=== PATIENT | male | born 1950 | race Caucasian/White ===

== ENCOUNTER 2019-08-10 04:02 | Observation (INO) | payer MEDICARE ==
[~2019-08-10] VITALS: Ht 180.3 cm; Wt 71.7 kg
[~2019-08-10 04:02] MED LIST: ATORVASTATIN CA20 MG PO; BRILINTA90 MG PO; EXCEDRIN MIGRA1 EAC3 PO; PEPCID20 MG PO
[2019-08-10 04:29] LABS: BASOPHILS # (AUTO) 0.2 (0.0-0.1); BASOPHILS % 1.2 % (0.0-1.0); EOSINOPHILS # (AUTO) 0.9 (0.0-0.4); EOSINOPHILS % 4.7 % (0.0-6.0); HEMATOCRIT 49.7 % (38.2-49.6); HEMOGLOBIN 16.8 g/dL (14.0-18.0); LYMPHOCYTES % 16.5 % (18.0-39.1); MEAN CORPUSCULAR HEMOGLOBIN 31.1 pg (28-32); MEAN CORPUSCULAR HGB CONC 33.8 g/dL (31-35); MONOCYTES # (AUTO) 1.4 (0.2-0.8); MONOCYTES % 7.6 % (4.4-11.3); NEUTROPHILS # (AUTO) 12.6 (2.1-6.9); NEUTROPHILS % 69.6 % (38.7-80.0); PLATELET COUNT 372 x10e3/uL (140-360); RED CELL DISTRIBUTION WIDTH 13.2 % (11.7-14.4)
[2019-08-10 04:33] LABS: INR 0.91; PROTHROMBIN TIME 12.8 seconds (11.9-14.5)
[2019-08-10 04:34] LABS: PARTIAL THROMBOPLASTIN TIME 39.4 seconds (23.8-35.5)
[2019-08-10 04:36] LABS: CLARITY,URINE CLOUDY (CLEAR); COLOR,URINE YELLOW (YELLOW); KETONES,URINE NEGATIVE (NEGATIVE); LEUKOCYTE ESTERASE ,URINE NEGATIVE (NEGATIVE); NITRITE,URINE NEGATIVE (NEGATIVE); PROTEIN,URINE DIPSTICK NEGATIVE (NEGATIVE); URINE UROBILINOGEN 0.2 mg/dL (0.2 - 1)
[2019-08-10 04:37] LABS: BILIRUBIN,URINE 1+ (NEGATIVE)
[2019-08-10 04:40] LABS: ALANINE AMINOTRANSFERASE 11 IU/L (0-55); ALBUMIN 4.1 g/dL (3.5-5.0); ALBUMIN/GLOBULIN RATIO 1.1 (0.8-2.0); ALKALINE PHOSPHATASE 99 IU/L (40-150); ANION GAP 15.3 mmol/L (8-16); BLOOD UREA NITROGEN 7 mg/dL (7-26); BUN/CREATININE RATIO 8 (6-25); CARBON DIOXIDE 25 mmol/L (22-29); CHLORIDE 100 mmol/L (98-107); CREATININE, SERUM 0.85 mg/dL (0.72-1.25); EST GLOMERULAR FILTRATION RATE > 60 ML/MIN (60-); GLUCOSE 116 mg/dL (74-118); POTASSIUM 4.3 mmol/L (3.5-5.1); SODIUM 136 mmol/L (136-145)
[2019-08-10] MEDS ORDERED: PIPER-TAZ 3.375 GM 50 ML IV STA ×2 (04:42→05:05)
[2019-08-10 04:44] LABS: RBC,URINE 0-5 /HPF (0-5); WBC,URINE (MAN) 0-5 /HPF (0-5)
[2019-08-10 04:45] LABS: AMORPHOUS SEDIMENT,URINE MANY (FEW); BACTERIA,URINE MANY /HPF; EPITHELIAL CELLS,URINE FEW /LPF; MUCUS,URINE FEW (RARE)
[2019-08-10 04:51] LABS: AMYLASE 34 U/L (25-125); LIPASE 25 U/L (8-78)
[2019-08-10] MEDS ORDERED: SODIUM CHLORIDE 0.9% 50ML 50 ML ONE (05:06)
[2019-08-10] MEDS ORDERED: IOPAMIDOL 370 MG/ML 200 ML INFUS..BTL INJ ONE (05:06)
[2019-08-10 05:09] LABS: CREATINE KINASE MB 1.8 ng/mL (0-5.0)
--- NOTE | 2019-08-10 05:51 | Diagnostic Imaging Report ---
CT Abdomen And Pelvis with Intravenous Contrast INDICATION: Right lower quadrant pain and chills, and recent lower extremity stent placement ^abd pain TECHNIQUE: Thin collimation axial images obtained from the diaphragm to the level of the pubic symphysis following the uneventful administration of 100 cc of low osmolar, nonionic intravenous contrast. Dose reduction techniques used: Automated exposure control, adjustment of the mAs and/or kVp according to patient size, standardized low-dose protocol, and/or iterative reconstruction technique. RADIATION DOSE: Total DLP: 261.36 mGy*cm Estimated effective dose: (DLP x 0.015 x size factor) mSv CTDIvol has been reviewed. It is below the limits set by the Radiation Protocol Committee (RPC). COMPARISON: None. ABDOMEN FINDINGS: Lung Bases: Clear. The visualized portions of the mediastinum are normal.. Liver: Normal attenuation. No evidence for mass. Gallbladder: Present and appears normal. No biliary ductal dilatation. Pancreas: Normal attenuation without mass or ductal dilatation. Spleen: Normal in size. No evidence of mass.. Adrenal Glands: No evidence for mass. Kidneys: Right: Normal enhancement. No soft tissue mass. No hydronephrosis. Left: Lower pole cyst measures 4.1 x 5.2 cm. No soft tissue mass. No hydronephrosis. Lymph Nodes: No lymphadenopathy. Aorta: Atherosclerotic plaque throughout the infrarenal aorta without aneurysmal dilatation. Focal dissection along the right wall extends for approximately 2.3 cm in the craniocaudal dimension. There are two penetrating ulcers in the posterior wall measuring 7 mm and 6 mm. Just above the bifurcation an aortoiliac stent has been placed. This is widely patent. The external iliac arteries are patent. There are heavy calcifications of the internal iliac arteries with significant stenosis. Common femoral arteries appear patent. There are no stents within these vessels. PELVIS FINDINGS: Bowel: Stomach: Distended with water and appears normal. Small Bowel: Normal in caliber with normal wall thickness. Large Bowel: Normal in caliber with normal wall thickness. Appendix: Normal. Bladder: Collapsed. There is circumferential mural thickening. Prostate gland measures 5 cm in transverse dimension. Peritoneum/retroperitoneum: No free fluid or fluid collection.. Bones: Bilateral spondylolysis of L5 with grade 1 spondylolisthesis of L5 on S1. No compression fractures. Mild degenerative changes of the thoracic spine. Soft tissues: No lymphadenopathy, inflammation, fluid collection. IMPRESSION: 1. 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 2. No evidence for bowel obstruction or inflammation. Normal appendix. 3. Prostate hypertrophy and bladder wall thickening suggestive of outlet obstruction. 4. Patent aortoiliac stents. 5. Bilateral spondylolysis of L5 with grade 1 spondylolisthesis of L5 on S1. Signed by: Dr. Jovan Telles MD on 08/10/2019 5:49 AM
[2019-08-10] MEDS ORDERED: SODIUM CHLORIDE 0.9% 1000ML 1,000 ML IV STA (06:00)
[2019-08-10] MEDS ORDERED: ACETAMINOPHEN 325 MG TAB PO ONE (07:00)
[2019-08-10] MEDS ORDERED: VANCOMYCIN 1GM/NS 250 ML 250 ML IV STA (07:00)
[2019-08-10] MEDS ORDERED: MORPHINE SULFATE INJ 4 MG/ML INJ 1ML ONE (07:10)
[2019-08-10] MEDS ORDERED: ONDANSETRON HCL INJ 2MG/ML 2ML 2 MG/ML VIAL ONE (07:10)
[2019-08-10] MEDS ORDERED: ONDANSETRON HCL INJ 2MG/ML 2ML 2 MG/ML VIAL IV STA (07:18)
--- OUTSIDE RECORDS SUMMARY | 2019-08-10 07:24 | XMS REPORT ---
Author Author [facility] Address Unknown Phone Unavailable Care Team Providers Care Technology Support Analyst Name Role Phone NILSA BALLESTEROS Unavailable Unavailable Problems This patient has no known problems. Allergies, Adverse Reactions, Alerts This patient has no known allergies or adverse reactions. Medications This patient has no known medications. Results Test Description Test Time Test Comments Text Results Atomic Results Result Comments CT ABDOMEN/PELVIS W 2019-08-10 05:37:00 [place] [address] Patient Name: SHANICE CERVANTES MR #: [id number] : 1950 Age/Sex: 69/M Req #: [id number] Adm Physician: Ordered by: NILSA BALLESTEROS DO Report #: [id number] Location: ER Room/Bed: Procedure: [id number] CT/CT ABDOMEN/PELVIS W Exam Date: Exam Time: REPORT STATUS: Signed CT Abdomen And Pelvis with Intravenous Contrast INDICATION: Right lower quadrant pain and chills, and recent lower extremity stent placement abd pain TECHNIQUE: Thin collimation axial images obtained from the diaphragm to the level of the pubic symphysis following the uneventful administration of 100 cc of low osmolar, nonionic intravenous contrast. Dose reduction techniques used: Automated exposure control, adjustment of the mAs and/or kVp according to patient size, standardized low-dose protocol, and/or iterative reconstruction technique. RADIATION DOSE: Total DLP: 261.36 mGy*cm Estimated effective dose: (DLP x 0.015 x size factor) mSv CTDIvol has been reviewed. It is below the limits set by the Radiation Protocol Committee (RPC). COMPARISON: None. ABDOMEN FINDINGS: Lung Bases: Clear. The visualized portions of the mediastinum are normal.. Liver: Normal attenuation. No evidence for mass. Gallbladder: Present and appears normal. No biliary ductal dilatation. Pancreas: Normal attenuation without mass or ductal dilatation. Spleen: Normal in size. No evidence of mass.. Adrenal Glands: No evidence for mass. Kidneys: Right: Normal enhancement. No soft tissue mass. No hydronephrosis. Left: Lower pole cyst measures 4.1 x 5.2 cm. No soft tissue mass. No hydronephrosis. Lymph Nodes: No lymphadenopathy. Aorta: Atherosclerotic plaque throughout the infrarenal aorta without aneurysmal dilatation. Focal dissection along the right wall extends for approximately 2.3 cm in the craniocaudal dimension. There are two penetrating ulcers in the posterior wall measuring 7 mm and 6 mm. Just above the bifurcation an aortoiliac stent has been placed. This is widely patent. The external iliac arteries are patent. There are heavy calcifications of the internal iliac arteries with significant stenosis. Common femoral arteries appear patent. There are no stents within these vessels. PELVIS FINDINGS: Bowel: Stomach: Distended with water and appears normal. Small Bowel: Normal in caliber with normal wall thickness. Large Bowel: Normal in caliber with normal wall thickness. Appendix: Normal. Bladder: Collapsed. There is circumferential mural thickening. Prostate gland measures 5 cm in transverse dimension. Peritoneum/retroperitoneum: No free fluid or fluid collection.. Bones: Bilateral spondylolysis of L5 with grade 1 spondylolisthesis of L5 on S1. No compression fractures. Mild degenerative changes of the thoracic spine. Soft tissues: No lymphadenopathy, inflamma tion, fluid collection. IMPRESSION: 1. 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 2. No evidence for bowel obstruction or inflammation. Normal appendix. 3. Prostate hypertrophy and bladder wall thickening suggestive of outlet obstruction. 4. Patent aortoiliac stents. 5. Bilateral spondylolysis of L5 with grade 1 spondylolisthesis of L5 on S1. Signed by: Dr. Monica Telles MD on 08/10/2019 5:49 AM Dictated By: MONICA TELLES MD 8 Transcribed By: SESAR on 08/10/19548 COPY TO: NILSA BALLESTEROS DO
[2019-08-10] MEDS ORDERED: MORPHINE SULFATE INJ 4 MG/ML INJ 1ML IV ONE (07:30)
[2019-08-10 11:55] VITALS: BP 132/81
== END 2019-08-10 12:18 | disposition home or self-care (01) ==
LOC: ER 04:02 → ERHOLD 07:00
PROVIDERS: ADMIT Internal Medicine; ATTEND Internal Medicine
DX: I71.03 Dissection of thoracoabdominal aorta (principal); Z95.820 Peripheral vascular angioplasty status with implants and grafts; D72.829 Elevated white blood cell count, unspecified
CPT/HCPCS: 36415; 74177; 80053; 81001; 82150; 82550; 82553; 83605; 83690; 84484; 85025; 85610; 85730; 87040; 93005; 99284; G0378; J2270; J2405; J2543; J3370; J7030; Q9967

== ENCOUNTER → 2020-12-19 | Day surgery (SDC) | payer MEDICARE ==
[2020-12-16 09:53] LABS: BASOPHILS # (AUTO) 0.1 (0.0-0.1); BASOPHILS % 1.1 % (0.0-1.0); EOSINOPHILS # (AUTO) 0.5 (0.0-0.4); EOSINOPHILS % 3.8 % (0.0-6.0); HEMATOCRIT 49.9 % (38.2-49.6); HEMOGLOBIN 16.4 g/dL (14.0-18.0); LYMPHOCYTES # (AUTO) 1.8 (1.0-3.2); LYMPHOCYTES % 15.1 % (18.0-39.1); MEAN CORPUSCULAR HEMOGLOBIN 31.6 pg (28-32); MEAN CORPUSCULAR HGB CONC 32.9 g/dL (31-35); MEAN CORPUSCULAR VOLUME 96.1 fL (81-99); MONOCYTES # (AUTO) 1.1 (0.2-0.8); MONOCYTES % 8.9 % (4.4-11.3); NEUTROPHILS # (AUTO) 8.4 (2.1-6.9); NEUTROPHILS % 70.7 % (38.7-80.0); PLATELET COUNT 278 x10e3/uL (140-360); RED BLOOD COUNT 5.19 x10e6/uL (4.3-5.7); RED CELL DISTRIBUTION WIDTH 13.2 % (11.7-14.4)
[2020-12-16 10:26] LABS: ALBUMIN 3.7 g/dL (3.5-5.0); ALBUMIN/GLOBULIN RATIO 1.2 (0.8-2.0); ANION GAP 10.3 mmol/L (8-16); CALCIUM 9.1 mg/dL (8.4-10.2); CREATININE, SERUM 0.79 mg/dL (0.72-1.25); POTASSIUM 4.3 mmol/L (3.5-5.1)
[2020-12-16 10:39] LABS: INR 0.89; PROTHROMBIN TIME 12.6 seconds (11.9-14.5)
[~2020-12-19] VITALS: Ht 181.6 cm; Wt 72.6 kg
[2020-12-19] VITALS (9 sets, daily range): BP systolic 134–153; BP diastolic 67–75
[~2020-12-19] MED LIST changes: +ASPIRIN 325 MG TAB ONE; +CLOPIDOGREL BISULFATE 75 MG TAB ONE; +CLOPIDOGREL75 MG PO; +FENTANYL CITRATE/PF 100MCG/2 ML INJ ONE; +FISH OIL 1,0001 EAC2 PO; +FLOMAX0.4 MG PO; +HEPARIN SOD (PORCINE) 1000 UNIT/ML 30ML ONE; +HEPARIN SOD/SOD CHLORIDE 2,000 ML ONE; +IOPAMIDOL 300MG/ML 100 ML INFUS..BTL IV ONE; +LIDOCAINE HCL 2% LOCAL 20 ML VIAL ONE; +MEDROL4 MG PO; +MIDAZOLAM HCL 2 MG/2 ML VIAL ONE; +NITROGLYCERIN/D5W 200 MCG/ML 250 ML ONE; +SODIUM CHLORIDE 0.9% 1000ML 1,000 ML ONE; +VERAPAMIL HCL 2.5 MG/ML 2 ML VIAL ONE; +VITAMIN D3125 MCG PO
== END | disposition home or self-care (01) ==
LOC: CATH LAB 06:35
PROVIDERS: ATTEND Internal Medicine Cardiovascular Disease
DX: I70.212 Atherosclerosis of native arteries of extremities with intermittent claudication, left leg (principal); Z95.820 Peripheral vascular angioplasty status with implants and grafts; R00.2 Palpitations; I87.2 Venous insufficiency (chronic) (peripheral); I74.09 Other arterial embolism and thrombosis of abdominal aorta; E78.5 Hyperlipidemia, unspecified; I49.1 Atrial premature depolarization; I49.3 Ventricular premature depolarization; R07.2 Precordial pain; Z79.02 Long term (current) use of antithrombotics/antiplatelets
CPT/HCPCS: 36415; 37227; 75625; 75710; 76937; 80053; 85025; 85610; C1724; C1725 ×4; C1769 ×2; C1876; C2623; J1644; J2001; J2250; J3010; J7030; Q9967; 36247; 37224; 92979; 99152; 99153

== ENCOUNTER → 2020-12-26 | Day surgery (SDC) | payer MEDICARE ==
[2020-12-25 11:05] LABS: BASOPHILS # (AUTO) 0.1 (0.0-0.1); BASOPHILS % 1.1 % (0.0-1.0); EOSINOPHILS # (AUTO) 0.5 (0.0-0.4); EOSINOPHILS % 5.1 % (0.0-6.0); HEMATOCRIT 48.7 % (38.2-49.6); HEMOGLOBIN 16.1 g/dL (14.0-18.0); LYMPHOCYTES # (AUTO) 1.8 (1.0-3.2); MEAN CORPUSCULAR HEMOGLOBIN 31.4 pg (28-32); MEAN CORPUSCULAR HGB CONC 33.1 g/dL (31-35); MEAN CORPUSCULAR VOLUME 95.1 fL (81-99); MONOCYTES # (AUTO) 0.9 (0.2-0.8); MONOCYTES % 8.1 % (4.4-11.3); NEUTROPHILS # (AUTO) 7.2 (2.1-6.9); NEUTROPHILS % 68.2 % (38.7-80.0); PLATELET COUNT 291 x10e3/uL (140-360); RED BLOOD COUNT 5.12 x10e6/uL (4.3-5.7); RED CELL DISTRIBUTION WIDTH 12.8 % (11.7-14.4)
[2020-12-25 11:55] LABS: ALBUMIN 3.4 g/dL (3.5-5.0); ALBUMIN/GLOBULIN RATIO 0.9 (0.8-2.0); ANION GAP 11.5 mmol/L (8-16); CALCIUM 9.3 mg/dL (8.4-10.2); CREATININE, SERUM 0.72 mg/dL (0.72-1.25); POTASSIUM 3.5 mmol/L (3.5-5.1)
[2020-12-25 12:00] LABS: INR 0.89; PROTHROMBIN TIME 12.6 seconds (11.9-14.5)
[~2020-12-26] VITALS: Ht 181.6 cm; Wt 72.6 kg
[2020-12-26] VITALS (8 sets, daily range): BP systolic 104–127; BP diastolic 67–78
[~2020-12-26] MED LIST changes: -ASPIRIN 325 MG TAB ONE; -CLOPIDOGREL BISULFATE 75 MG TAB ONE; -NITROGLYCERIN/D5W 200 MCG/ML 250 ML ONE; -VERAPAMIL HCL 2.5 MG/ML 2 ML VIAL ONE
== END | disposition home or self-care (01) ==
LOC: CATH LAB 11:26
PROVIDERS: ATTEND Internal Medicine Cardiovascular Disease
DX: I73.9 Peripheral vascular disease, unspecified (principal); I87.2 Venous insufficiency (chronic) (peripheral); R00.2 Palpitations; I74.09 Other arterial embolism and thrombosis of abdominal aorta; E78.5 Hyperlipidemia, unspecified; I49.1 Atrial premature depolarization; I49.3 Ventricular premature depolarization; R07.2 Precordial pain
CPT/HCPCS: 36247; 36415; 75625; 75710; 80053; 85025; 85610; C1769; C1887 ×3; J2001; J2250; J3010; J7030; Q9967; 99152; 99153; J1644

== ENCOUNTER 2021-12-24 11:11 | Observation (INO) | payer MEDICARE ==
[~2021-12-24] VITALS: Ht 181.6 cm; Wt 72.6 kg
[~2021-12-24 11:11] MED LIST changes: -FENTANYL CITRATE/PF 100MCG/2 ML INJ ONE; -HEPARIN SOD (PORCINE) 1000 UNIT/ML 30ML ONE; -HEPARIN SOD/SOD CHLORIDE 2,000 ML ONE; -IOPAMIDOL 300MG/ML 100 ML INFUS..BTL IV ONE; -LIDOCAINE HCL 2% LOCAL 20 ML VIAL ONE; -MIDAZOLAM HCL 2 MG/2 ML VIAL ONE; -SODIUM CHLORIDE 0.9% 1000ML 1,000 ML ONE
[2021-12-24 11:45] LABS: BASOPHILS # (AUTO) 0.1 (0.0-0.1); EOSINOPHILS # (AUTO) 0.3 (0.0-0.4); EOSINOPHILS % 2.8 % (0.0-6.0); HEMATOCRIT 50.2 % (38.2-49.6); HEMOGLOBIN 16.5 g/dL (14.0-18.0); LYMPHOCYTES # (AUTO) 2.2 (1.0-3.2); LYMPHOCYTES % 18.5 % (18.0-39.1); MEAN CORPUSCULAR HEMOGLOBIN 31.5 pg (28-32); MEAN CORPUSCULAR HGB CONC 32.9 g/dL (31-35); MEAN CORPUSCULAR VOLUME 95.8 fL (81-99); MONOCYTES # (AUTO) 1.2 (0.2-0.8); MONOCYTES % 9.9 % (4.4-11.3); NEUTROPHILS % 67.3 % (38.7-80.0); PLATELET COUNT 300 x10e3/uL (140-360); RED BLOOD COUNT 5.24 x10e6/uL (4.3-5.7); RED CELL DISTRIBUTION WIDTH 12.9 % (11.7-14.4)
[2021-12-24] MEDS ORDERED: ASPIRIN 81 MG CHEW TAB PO ONE ×2 (11:45→13:15)
[2021-12-24 11:55] LABS: INR 0.93; PROTHROMBIN TIME 13.3 seconds (11.9-14.5)
[2021-12-24 11:56] LABS: PARTIAL THROMBOPLASTIN TIME 32.1 seconds (23.8-35.5)
[2021-12-24 12:03] LABS: ALANINE AMINOTRANSFERASE 18 IU/L (0-55); ALBUMIN 3.8 g/dL (3.5-5.0); ALKALINE PHOSPHATASE 70 IU/L (40-150); ANION GAP 15.6 mmol/L (8-16); BLOOD UREA NITROGEN 16 mg/dL (7-26); BUN/CREATININE RATIO 20 (6-25); CALCIUM 9.5 mg/dL (8.4-10.2); CARBON DIOXIDE 25 mmol/L (22-29); CHLORIDE 105 mmol/L (98-107); CREATINE KINASE 135 IU/L (30-200); CREATININE, SERUM 0.81 mg/dL (0.72-1.25); GLUCOSE 108 mg/dL (74-118); POTASSIUM 4.6 mmol/L (3.5-5.1); SODIUM 141 mmol/L (136-145)
[2021-12-24] MEDS ORDERED: ONDANSETRON HCL INJ 2MG/ML 2ML 2 MG/ML VIAL IV PRN (13:15)
[2021-12-24] MEDS ORDERED: NITROGLYCERIN 0.4 MG SUBL SL PRN (13:15)
[2021-12-24] MEDS ORDERED: Morphine 2mg Syringe 2 MG/ML SYR IV PRN (13:15)
[2021-12-24] MEDS: FAMOTIDINE 20 MG/2 ML VIAL IV SCH ×2 (14:02→21:04)
[2021-12-24 17:25] VITALS: BP 99/81
[2021-12-24 20:07] LABS: CREATINE KINASE 102 IU/L (30-200)
[2021-12-24 20:45] VITALS: BP 129/69
[2021-12-24] MEDS ORDERED: ATORVASTATIN 40 MG TAB PO SCH (21:00)
[2021-12-24 21:48] VITALS: BP 129/69
[2021-12-25] VITALS (19 sets, daily range): BP systolic 100–130; BP diastolic 56–83
[2021-12-25 03:13] LABS: CREATINE KINASE 100 IU/L (30-200)
[2021-12-25 05:37] LABS: BASOPHILS # (AUTO) 0.1 (0.0-0.1); BASOPHILS % 0.9 % (0.0-1.0); EOSINOPHILS # (AUTO) 0.5 (0.0-0.4); EOSINOPHILS % 4.3 % (0.0-6.0); HEMATOCRIT 48.4 % (38.2-49.6); HEMOGLOBIN 15.9 g/dL (14.0-18.0); LYMPHOCYTES # (AUTO) 2.8 (1.0-3.2); MEAN CORPUSCULAR HEMOGLOBIN 32.1 pg (28-32); MEAN CORPUSCULAR HGB CONC 32.9 g/dL (31-35); MEAN CORPUSCULAR VOLUME 97.6 fL (81-99); MONOCYTES # (AUTO) 1.1 (0.2-0.8); MONOCYTES % 10.2 % (4.4-11.3); NEUTROPHILS # (AUTO) 6.3 (2.1-6.9); NEUTROPHILS % 58.3 % (38.7-80.0); PLATELET COUNT 295 x10e3/uL (140-360); RED BLOOD COUNT 4.96 x10e6/uL (4.3-5.7); RED CELL DISTRIBUTION WIDTH 12.8 % (11.7-14.4)
[2021-12-25 06:14] LABS: ALBUMIN 3.5 g/dL (3.5-5.0); ALBUMIN/GLOBULIN RATIO 1.1 (0.8-2.0); ANION GAP 13.3 mmol/L (8-16); CALCIUM 8.5 mg/dL (8.4-10.2); CHOL/HDL RATIO 3.8 (3.9-4.7); CREATININE, SERUM 0.81 mg/dL (0.72-1.25); POTASSIUM 4.3 mmol/L (3.5-5.1)
[2021-12-25] MEDS ORDERED: OMEGA 3 POLYUNSAT FATTY ACIDS 1000 MG SOFTGEL PO SCH (09:00)
[2021-12-25] MEDS: FAMOTIDINE 20 MG/2 ML VIAL IV SCH (09:00)
[2021-12-25] MEDS ORDERED: NON-FORMULARY MEDICATION (Omega-3 Fatty Acids/Fish Oil (Fish Oil 1,000 Mg Capsule) 1 CAP) PO SCH (09:00)
[2021-12-25] MEDS ORDERED: CHOLECALCIFEROL 125 MCG PO SCH (09:00)
[2021-12-25] MEDS ORDERED: CHOLECALCIFEROL 1,000 UNIT TAB PO SCH (09:00)
[2021-12-25] MEDS ORDERED: CLOPIDOGREL BISULFATE 75 MG TAB PO SCH ×2 (09:00)
[2021-12-25] MEDS ORDERED: TAMSULOSIN HCL 0.4 MG CAP PO SCH (09:00)
[2021-12-25] MEDS ORDERED: ASPIRIN 325 MG TAB EC PO SCH (09:00)
[2021-12-25 12:29] LABS: CREATINE KINASE MB 2.3 ng/mL (0-5.0)
[2021-12-25] MEDS ORDERED: LIDOCAINE HCL 2% LOCAL 20 ML VIAL ONE (13:08)
[2021-12-25] MEDS ORDERED: SODIUM CHLORIDE 0.9% 1000ML 1,000 ML ONE (13:09)
[2021-12-25] MEDS ORDERED: HEPARIN SOD/SOD CHLORIDE 2,000 ML ONE (13:09)
[2021-12-25] MEDS ORDERED: MIDAZOLAM HCL 2 MG/2 ML VIAL ONE (13:09)
[2021-12-25] MEDS ORDERED: IOPAMIDOL 370 MG/ML 100 ML INFUS..BTL INJ ONE (13:09)
[2021-12-25] MEDS ORDERED: FENTANYL CITRATE/PF 100MCG/2 ML INJ ONE (13:10)
[2021-12-25] MEDS ORDERED: IMDUR PO (18:37)
== END 2021-12-25 20:03 | disposition home or self-care (01) ==
LOC: ER 11:37 → ERHOLD 13:10 → INTOOBSV 13:10 → MED/SURG2 16:33
DX: I25.110 Atherosclerotic heart disease of native coronary artery with unstable angina pectoris (principal); K21.9 Gastro-esophageal reflux disease without esophagitis; E78.5 Hyperlipidemia, unspecified; F17.200 Nicotine dependence, unspecified, uncomplicated; F10.21 Alcohol dependence, in remission; I73.9 Peripheral vascular disease, unspecified; I10 Essential (primary) hypertension; Z95.820 Peripheral vascular angioplasty status with implants and grafts; Z20.822 Contact with and (suspected) exposure to COVID-19
CPT/HCPCS: 36415 ×2; 71045; 76937; 80053 ×2; 80061; 82550 ×2; 82553 ×2; 84484 ×2; 85025 ×2; 85610; 85730; 93005; 93306; 93454; 94799; 99284; C1887; G0378 ×2; J2001; J2250; J3010; J7030; Q9967; U0002; 99152; 99153

== ENCOUNTER 2024-07-04 11:27 | Inpatient (IN) | payer MEDICARE ==
[~2024-07-04] VITALS: Ht 180.3 cm; Wt 72.6 kg
[~2024-07-04 11:27] MED LIST changes: +IMDUR PO
[2024-07-04] MEDS: SODIUM CHLORIDE 0.9% 1000ML 1,000 ML IV STA (12:22)
[2024-07-04 13:00] LABS: INR 1.11
[2024-07-04 13:01] LABS: PARTIAL THROMBOPLASTIN TIME 24.8 seconds (23.8-35.5)
[2024-07-04 13:06] LABS: BASOPHILS % 0.1 % (0.0-1.0); LYMPHOCYTES # (AUTO) 0.8 (1.0-3.2); LYMPHOCYTES % 5.7 % (18.0-39.1); MEAN CORPUSCULAR HEMOGLOBIN 23.1 pg (28-32); MEAN CORPUSCULAR HGB CONC 24.8 g/dL (31-35); MEAN CORPUSCULAR VOLUME 93.1 fL (81-99); MONOCYTES # (AUTO) 1.1 (0.2-0.8); MONOCYTES % 8.1 % (4.4-11.3); NEUTROPHILS # (AUTO) 12.1 (2.1-6.9); NEUTROPHILS % 85.5 % (38.7-80.0); PLATELET COUNT 466 x10e3/uL (140-360); RED CELL DISTRIBUTION WIDTH 18.4 % (11.7-14.4); WHITE BLOOD COUNT 14.09 x10e3/uL (4.8-10.8)
[2024-07-04 13:09] LABS: ALBUMIN 3.2 g/dL (3.5-5.0); ALBUMIN/GLOBULIN RATIO 1.3 (0.8-2.0); ANION GAP 14.7 mmol/L (8-16); BILIRUBIN,TOTAL 0.8 mg/dL (0.2-1.2); CALCIUM 8.5 mg/dL (8.4-10.2); CREATININE, SERUM 0.76 mg/dL (0.72-1.25); MAGNESIUM 2.2 MG/DL (1.3-2.1); POTASSIUM 3.7 mmol/L (3.5-5.1); TOTAL PROTEIN 5.6 g/dL (6.5-8.1)
[2024-07-04 13:15] LABS: TROPONIN I 0.09 ng/mL (0-0.300)
[2024-07-04] MEDS ORDERED: SODIUM CHLORIDE 0.9% 100 ML ONE (13:19)
[2024-07-04] MEDS ORDERED: IOPAMIDOL 370 MG/ML 100 ML INFUS..BTL INJ ONE (13:19)
[2024-07-04 13:23] LABS: HEMATOCRIT 12.1 % (38.2-49.6)
[2024-07-04] MEDS ORDERED: ONDANSETRON HCL INJ 2MG/ML 2ML 2 MG/ML VIAL IV PRN ×2 (14:30→14:45)
[2024-07-04] MEDS ORDERED: CLONIDINE HCL 0.1 MG TAB PO PRN (14:45)
[2024-07-04] MEDS ORDERED: ACETAMINOPHEN 325 MG TAB PO PRN (14:45)
[2024-07-04] MEDS: SODIUM CHLORIDE 0.9% 1000ML 1,000 ML IV ONE (15:35)
[2024-07-04 15:59] LABS: FERRITIN 14.95 ng/mL (21.81-274.66)
[2024-07-04] MEDS ORDERED: SODIUM CHLORIDE 0.9% 250ML 250 ML ONE (17:35)
[2024-07-04] MEDS: IRON SUCROSE 100 MG in SODIUM CHLORIDE 0.9% 100 ML IV SCH (19:31)
[2024-07-04] MEDS: TAMSULOSIN HCL 0.4 MG CAP PO SCH (21:07)
[2024-07-04] MEDS: ATORVASTATIN 40 MG TAB PO SCH (21:08)
[2024-07-05] VITALS (13 sets, daily range): BP systolic 97–125; BP diastolic 43–77; PULSE 60–74; RESP 17–28; TEMP 97.4–98.8; O2SAT 98–100
[2024-07-05 01:38] LABS: TROPONIN I 0.112 ng/mL (0-0.300)
[2024-07-05 07:07] LABS: BASOPHILS % 0.1 % (0.0-1.0); EOSINOPHILS # (AUTO) 0.2 (0.0-0.4); EOSINOPHILS % 1.4 % (0.0-6.0); HEMATOCRIT 22.6 % (38.2-49.6); HEMOGLOBIN 7.1 g/dL (14.0-18.0); LYMPHOCYTES # (AUTO) 2.2 (1.0-3.2); LYMPHOCYTES % 15.3 % (18.0-39.1); MEAN CORPUSCULAR HEMOGLOBIN 27.1 pg (28-32); MEAN CORPUSCULAR HGB CONC 31.4 g/dL (31-35); MEAN CORPUSCULAR VOLUME 86.3 fL (81-99); MONOCYTES # (AUTO) 1.8 (0.2-0.8); MONOCYTES % 12.6 % (4.4-11.3); NEUTROPHILS # (AUTO) 10.2 (2.1-6.9); PLATELET COUNT 299 x10e3/uL (140-360); RED BLOOD COUNT 2.62 x10e6/uL (4.3-5.7); RED CELL DISTRIBUTION WIDTH 16.5 % (11.7-14.4); WHITE BLOOD COUNT 14.61 x10e3/uL (4.8-10.8)
[2024-07-05 07:39] LABS: TROPONIN I 0.127 ng/mL (0-0.300)
[2024-07-05 07:40] LABS: ALBUMIN 2.8 g/dL (3.5-5.0); ALBUMIN/GLOBULIN RATIO 1.5 (0.8-2.0); ANION GAP 9.9 mmol/L (8-16); BILIRUBIN,TOTAL 2.2 mg/dL (0.2-1.2); CALCIUM 8.2 mg/dL (8.4-10.2); CREATININE, SERUM 0.75 mg/dL (0.72-1.25); POTASSIUM 3.9 mmol/L (3.5-5.1); TOTAL PROTEIN 4.7 g/dL (6.5-8.1)
[2024-07-05] MEDS: ISOSORBIDE MONONITRATE 30 MG TAB CR PO SCH (07:49)
[2024-07-05] MEDS: OMEGA 3 POLYUNSAT FATTY ACIDS 1000 MG SOFTGEL PO SCH (07:49)
[2024-07-05] MEDS: SODIUM CHLORIDE 0.9% 250ML 250 ML IV ONE (11:32)
[2024-07-05] MEDS: LACTULOSE SYRUP 20 GM/30 ML UDC PO ONE (13:00)
[2024-07-05 13:11] LABS: BASOPHILS % 0.1 % (0.0-1.0); EOSINOPHILS # (AUTO) 0.2 (0.0-0.4); EOSINOPHILS % 1.4 % (0.0-6.0); HEMATOCRIT 25.8 % (38.2-49.6); HEMOGLOBIN 7.5 g/dL (14.0-18.0); LYMPHOCYTES # (AUTO) 1.9 (1.0-3.2); LYMPHOCYTES % 12.6 % (18.0-39.1); MEAN CORPUSCULAR HEMOGLOBIN 26.6 pg (28-32); MEAN CORPUSCULAR HGB CONC 29.1 g/dL (31-35); MEAN CORPUSCULAR VOLUME 91.5 fL (81-99); MONOCYTES # (AUTO) 1.9 (0.2-0.8); MONOCYTES % 12.6 % (4.4-11.3); NEUTROPHILS # (AUTO) 10.7 (2.1-6.9); NEUTROPHILS % 72.7 % (38.7-80.0); PLATELET COUNT 310 x10e3/uL (140-360); RED BLOOD COUNT 2.82 x10e6/uL (4.3-5.7); RED CELL DISTRIBUTION WIDTH 16.9 % (11.7-14.4); WHITE BLOOD COUNT 14.74 x10e3/uL (4.8-10.8)
[2024-07-05] MEDS ORDERED: IOPAMIDOL 370 MG/ML 100 ML INFUS..BTL INJ ONE (13:17)
[2024-07-05] MEDS ORDERED: DOCUSATE SODIUM 100 MG CAP PO SCH (17:00)
[2024-07-05] MEDS: BISACODYL 5 MG TAB EC PO ONE ×3 (18:27→19:30)
[2024-07-05] MEDS ORDERED: IRON SUCROSE 5 ML IV ONE (21:45)
[2024-07-05] MEDS: IRON SUCROSE 100 MG in SODIUM CHLORIDE 0.9% 100 ML IV SCH (21:48)
[2024-07-05] MEDS: CITRATE OF MAGNESIA 300ML BOTTLE PO ONE (21:50)
[2024-07-05] MEDS: DOCUSATE SODIUM 100 MG CAP PO SCH (21:50)
[2024-07-06] VITALS (7 sets, daily range): BP systolic 93–107; BP diastolic 42–55; PULSE 58–68; RESP 18–20; TEMP 97.8–98.6; O2SAT 98–100
[2024-07-06] MEDS: CITRATE OF MAGNESIA 300ML BOTTLE PO ONE ×2 (04:27→21:38)
[2024-07-06 05:26] LABS: BASOPHILS % 0.2 % (0.0-1.0); EOSINOPHILS # (AUTO) 0.5 (0.0-0.4); EOSINOPHILS % 3.2 % (0.0-6.0); HEMATOCRIT 26.4 % (38.2-49.6); LYMPHOCYTES # (AUTO) 1.9 (1.0-3.2); LYMPHOCYTES % 11.3 % (18.0-39.1); MEAN CORPUSCULAR HGB CONC 30.3 g/dL (31-35); MEAN CORPUSCULAR VOLUME 89.2 fL (81-99); MONOCYTES % 12.1 % (4.4-11.3); NEUTROPHILS # (AUTO) 11.9 (2.1-6.9); NEUTROPHILS % 72.5 % (38.7-80.0); PLATELET COUNT 350 x10e3/uL (140-360); RED BLOOD COUNT 2.96 x10e6/uL (4.3-5.7); RED CELL DISTRIBUTION WIDTH 16.4 % (11.7-14.4); WHITE BLOOD COUNT 16.44 x10e3/uL (4.8-10.8)
[2024-07-06 05:56] LABS: ALBUMIN 2.6 g/dL (3.5-5.0); ALBUMIN/GLOBULIN RATIO 1.4 (0.8-2.0); BILIRUBIN,TOTAL 1.6 mg/dL (0.2-1.2); CREATININE, SERUM 0.68 mg/dL (0.72-1.25); TOTAL PROTEIN 4.4 g/dL (6.5-8.1)
[2024-07-06] MEDS: SODIUM CHLORIDE 0.9% 1000ML 1,000 ML IV SCH (11:04)
[2024-07-06] MEDS: POTASSIUM CHLORIDE 10MEQ/100ML 200 ML IV ONE (14:43)
[2024-07-06] MEDS: BISACODYL 5 MG TAB EC PO ONE ×3 (17:35→20:26)
[2024-07-06] MEDS: POTASSIUM CHLORIDE 20 MEQ TAB CR PO ONE (18:13)
[2024-07-07] VITALS (8 sets, daily range): BP systolic 84–105; BP diastolic 46–59; PULSE 51–77; RESP 15–18; TEMP 97.6–98.2; O2SAT 97–100
[2024-07-07] MEDS: CITRATE OF MAGNESIA 300ML BOTTLE PO ONE (04:36)
[2024-07-07 05:12] LABS: BASOPHILS % 0.3 % (0.0-1.0); EOSINOPHILS # (AUTO) 0.5 (0.0-0.4); EOSINOPHILS % 3.4 % (0.0-6.0); HEMATOCRIT 24.1 % (38.2-49.6); LYMPHOCYTES # (AUTO) 2.1 (1.0-3.2); LYMPHOCYTES % 13.7 % (18.0-39.1); MEAN CORPUSCULAR HEMOGLOBIN 26.7 pg (28-32); MEAN CORPUSCULAR HGB CONC 30.7 g/dL (31-35); MONOCYTES # (AUTO) 1.8 (0.2-0.8); MONOCYTES % 11.7 % (4.4-11.3); NEUTROPHILS # (AUTO) 10.6 (2.1-6.9); NEUTROPHILS % 70.1 % (38.7-80.0); PLATELET COUNT 303 x10e3/uL (140-360); RED BLOOD COUNT 2.77 x10e6/uL (4.3-5.7); RED CELL DISTRIBUTION WIDTH 16.7 % (11.7-14.4); WHITE BLOOD COUNT 15.08 x10e3/uL (4.8-10.8)
[2024-07-07 05:23] LABS: HEMOGLOBIN 7.4 g/dL (14.0-18.0)
[2024-07-07 05:43] LABS: ANION GAP 10.1 mmol/L (8-16); CALCIUM 7.7 mg/dL (8.4-10.2); CREATININE, SERUM 0.65 mg/dL (0.72-1.25)
[2024-07-07 05:48] LABS: POTASSIUM 3.1 mmol/L (3.5-5.1)
[2024-07-07] MEDS ORDERED: PROPOFOL IV EMULSION 50 ML IV ONE (15:12)
[2024-07-07] MEDS ORDERED: LIDOCAINE HCL 2% LOCAL INJ 5 ML SDV VIAL INJ ONE (15:12)
[2024-07-07] MEDS ORDERED: METOCLOPRAMIDE HCL 10 MG/2ML VIAL ONE (15:29)
[2024-07-07] MEDS ORDERED: FENTANYL CITRATE/PF 100MCG/2 ML INJ ONE (16:16)
[2024-07-07] MEDS ORDERED: PROPOFOL IV EMULSION 10 MG/ML 20 ML VIAL ONE (17:06)
[2024-07-08 03:54] VITALS: BP 93/45; PULSE 62; RESP 17; TEMP 98.4; O2SAT 95
[2024-07-08 05:59] LABS: BASOPHILS % 0.3 % (0.0-1.0); EOSINOPHILS # (AUTO) 0.4 (0.0-0.4); EOSINOPHILS % 2.9 % (0.0-6.0); HEMATOCRIT 25.6 % (38.2-49.6); HEMOGLOBIN 7.3 g/dL (14.0-18.0); LYMPHOCYTES # (AUTO) 1.5 (1.0-3.2); LYMPHOCYTES % 11.2 % (18.0-39.1); MEAN CORPUSCULAR HEMOGLOBIN 26.8 pg (28-32); MEAN CORPUSCULAR HGB CONC 28.5 g/dL (31-35); MEAN CORPUSCULAR VOLUME 94.1 fL (81-99); MONOCYTES # (AUTO) 1.4 (0.2-0.8); MONOCYTES % 10.5 % (4.4-11.3); NEUTROPHILS # (AUTO) 10.3 (2.1-6.9); NEUTROPHILS % 74.5 % (38.7-80.0); PLATELET COUNT 268 x10e3/uL (140-360); RED BLOOD COUNT 2.72 x10e6/uL (4.3-5.7); RED CELL DISTRIBUTION WIDTH 18.1 % (11.7-14.4); WHITE BLOOD COUNT 13.75 x10e3/uL (4.8-10.8)
[2024-07-08 06:20] LABS: ANION GAP 11.3 mmol/L (8-16); CALCIUM 7.6 mg/dL (8.4-10.2); CREATININE, SERUM 0.73 mg/dL (0.72-1.25)
[2024-07-08 06:27] LABS: POTASSIUM 3.3 mmol/L (3.5-5.1)
[2024-07-08 08:55] VITALS: BP 94/48; PULSE 55; RESP 18; TEMP 98.1; O2SAT 100
[2024-07-08 12:08] VITALS: BP 98/49; PULSE 57; RESP 18; TEMP 97.6; O2SAT 100
[2024-07-08 16:14] VITALS: BP 112/53; PULSE 58; RESP 20; TEMP 98.1; O2SAT 100
[2024-07-08 20:00] VITALS: BP 106/48; PULSE 58; RESP 17; TEMP 99.2; O2SAT 99
[2024-07-08 21:00] VITALS: BP 106/48; PULSE 58; RESP 17; TEMP 99.2; O2SAT 99
[2024-07-09] VITALS: BP 118/54; PULSE 62; RESP 18; TEMP 99.3; O2SAT 100
[2024-07-09 04:00] VITALS: BP 117/63; PULSE 63; RESP 17; TEMP 98.6; O2SAT 99
[2024-07-09 06:02] LABS: BASOPHILS # (AUTO) 0.1 (0.0-0.1); BASOPHILS % 0.4 % (0.0-1.0); EOSINOPHILS # (AUTO) 0.4 (0.0-0.4); HEMATOCRIT 25.9 % (38.2-49.6); HEMOGLOBIN 7.4 g/dL (14.0-18.0); LYMPHOCYTES # (AUTO) 1.9 (1.0-3.2); LYMPHOCYTES % 15.1 % (18.0-39.1); MEAN CORPUSCULAR HEMOGLOBIN 27.1 pg (28-32); MEAN CORPUSCULAR HGB CONC 28.6 g/dL (31-35); MEAN CORPUSCULAR VOLUME 94.9 fL (81-99); MONOCYTES # (AUTO) 1.5 (0.2-0.8); MONOCYTES % 11.4 % (4.4-11.3); NEUTROPHILS # (AUTO) 8.9 (2.1-6.9); NEUTROPHILS % 69.7 % (38.7-80.0); PLATELET COUNT 215 x10e3/uL (140-360); RED BLOOD COUNT 2.73 x10e6/uL (4.3-5.7); RED CELL DISTRIBUTION WIDTH 18.6 % (11.7-14.4); WHITE BLOOD COUNT 12.81 x10e3/uL (4.8-10.8)
[2024-07-09 06:29] LABS: ANION GAP 10.3 mmol/L (8-16); CALCIUM 7.7 mg/dL (8.4-10.2); CREATININE, SERUM 0.74 mg/dL (0.72-1.25)
[2024-07-09 06:33] LABS: POTASSIUM 3.3 mmol/L (3.5-5.1)
[2024-07-09 08:00] VITALS: BP 103/50; PULSE 62; RESP 18; TEMP 98.5; O2SAT 99
[2024-07-09 08:27] VITALS: BP 103/50; PULSE 62; RESP 17; TEMP 98.5; O2SAT 94
[2024-07-09 12:12] VITALS: BP 103/50; PULSE 56; RESP 19; TEMP 98.6; O2SAT 98
== END 2024-07-09 15:11 | disposition home or self-care (01) | DRG 398 ==
LOC: ER 12:07 → ERHOLD 14:29 → ICU 07-05 03:44 → MED/SURG 07-05 12:07
PROVIDERS: ADMIT Internal Medicine; ATTEND Internal Medicine
PROC: 30233N1 Transfusion of Nonautologous Red Blood Cells into Peripheral Vein, Percutaneous Approach (ICD-10-PCS; 2024-07-04)
PROC: 0D778ZZ Dilation of Stomach, Pylorus, Via Natural or Artificial Opening Endoscopic (ICD-10-PCS; 2024-07-07)
PROC: 0D798ZZ Dilation of Duodenum, Via Natural or Artificial Opening Endoscopic (ICD-10-PCS; 2024-07-07)
PROC: 0DBJ8ZX Excision of Appendix, Via Natural or Artificial Opening Endoscopic, Diagnostic (ICD-10-PCS; principal; 2024-07-07 16:10)
PROC: 0DB68ZX Excision of Stomach, Via Natural or Artificial Opening Endoscopic, Diagnostic (ICD-10-PCS; 2024-07-07 16:10)
PROC: 0DB78ZX Excision of Stomach, Pylorus, Via Natural or Artificial Opening Endoscopic, Diagnostic (ICD-10-PCS; 2024-07-07 16:10)
PROC: 0DBM8ZX Excision of Descending Colon, Via Natural or Artificial Opening Endoscopic, Diagnostic (ICD-10-PCS; 2024-07-07 16:10)
PROC: 0DBN8ZX Excision of Sigmoid Colon, Via Natural or Artificial Opening Endoscopic, Diagnostic (ICD-10-PCS; 2024-07-07 16:10)
DX: K29.71 Gastritis, unspecified, with bleeding (principal); D62 Acute posthemorrhagic anemia; D68.32 Hemorrhagic disorder due to extrinsic circulating anticoagulants; K20.91 Esophagitis, unspecified with bleeding; I65.23 Occlusion and stenosis of bilateral carotid arteries; I10 Essential (primary) hypertension; I25.10 Atherosclerotic heart disease of native coronary artery without angina pectoris; I73.9 Peripheral vascular disease, unspecified; E87.6 Hypokalemia; K21.9 Gastro-esophageal reflux disease without esophagitis; E78.00 Pure hypercholesterolemia, unspecified; N40.0 Benign prostatic hyperplasia without lower urinary tract symptoms; K63.5 Polyp of colon; K44.9 Diaphragmatic hernia without obstruction or gangrene; R29.6 Repeated falls; K59.00 Constipation, unspecified; R19.7 Diarrhea, unspecified; M54.9 Dorsalgia, unspecified; Z95.820 Peripheral vascular angioplasty status with implants and grafts; T45.515A Adverse effect of anticoagulants, initial encounter; F17.210 Nicotine dependence, cigarettes, uncomplicated
CPT/HCPCS: 36415; 43239; 43450; 45378; 45380; 45385; 70496; 70498; 71045; 74177; 80048; 80053; 82550; 82607; 82728; 82746; 83010; 83540; 83735; 83880; 84443; 84466; 84484; 85025; 85045; 85610; 85730; 86850; 86900; 86920; 88305; 88312; 93005; 93306; 99252; 99284; J0696; J1756; J2003; J2470; J2765; J3480; J7030; J7050; P9016; Q9967